=== PATIENT | male | born 2005 | race Two or more races ===

== ENCOUNTER 2024-09-01 22:33 | Emergency (ER) | payer SELFPAY | END 2024-09-02 01:23 | disposition left against medical advice (07) | LOC: MW.ED 22:33 | DX: Z53.21 Procedure and treatment not carried out due to patient leaving prior to being seen by health care provider (principal) ==

== ENCOUNTER 2024-09-03 01:31 | Emergency (ER) | payer SELFPAY | END 2024-09-03 02:19 | disposition home or self-care (01) | LOC: MW.ED 01:31 | DX: H60.92 Unspecified otitis externa, left ear (principal); H72.92 Unspecified perforation of tympanic membrane, left ear; Z91.048 Other nonmedicinal substance allergy status; Z75.8 Other problems related to medical facilities and other health care | CPT/HCPCS: 99282 ==